=== PATIENT | female | born 1985 | race African-American/Black ===

== ENCOUNTER 2016-08-05 21:17 | Emergency (ER) | payer OTHER ==
[~2016-08-05] VITALS: Ht 165.1 cm; Wt 73.9 kg
--- NOTE | 2016-08-05 21:48 | ED GI/GU/ABDOMINAL COMPLAINT ---
History of Present Illness General Chief Complaint: Uterine Contractions(Pregnacy) Stated Complaint: VAGINAL BLEEDING, ABD CRAMPING, +20 WKS PREG. Source: patient Exam Limitations: no limitations Vital Signs & Intake/Output Vital Signs & Intake/Output Vital Signs Date Time Temp Pulse Resp B/P B/P Pulse O2 O2 Flow FiO2 Mean Ox Delivery Rate 08/06 0010 110/70 08/05 2356 97.2 71 18 91/50 99 Room Air 08/05 2120 98.4 102 20 111/72 100 Room Air ED Intake and Output 08/06 0000 08/05 1200 Intake Total 0 Output Total Balance 0 Intake, Oral 0 Patient 163 lb Weight Weight Reported by Patient Measurement Method Allergies Coded Allergies: almond oil (Intermediate, HIVES 08/05/16) apricot (Intermediate, HIVES 08/05/16) peanut (Intermediate, HIVES 08/05/16) pollen extracts (Intermediate, SNEEZING, WHEEZING, TRIGGERS ASTHMA 08/05/16) Triage Note: TRIAGE: PT TO ER C/C ABD PAIN AND VAGINAL BLEEDING. ONSET THIS MORNING. PT CURRENTLY 20 WEEKS , DUE DATE 12/19/2016. PT OF DR SYED. . STATES WITH LAST HAD COMPLICATION OF PLACENTA PREVIA BUT DENIES ANY COMPLICATIONS WITH THIS . REPORTS PAIN WAS INTERMITTENT AND WAS UPPER ABD INITIALLY CONTRACTION LIKE IN NATURE AND NOW PAIN IS LOW ABD CRAMPING AND CONSTANT. STATES VAGINAL BLEEDING WAS SPOTTING THIS MORNING BUT AT 8 PM HAD INCREASED BLEEDING WITH BRB, DENIES CLOTS BUT STATES THERE WERE "LITTLE SPECKS". STATES HAS NOT NEEDED TO WEAR A PAD JUST HAD TO WIPE MORE. [facility]PO[facility] WHO ADVISED PATIENT IS TO REMAIN IN ER AND THEY ARE AVAILABLE IF NEEDED. Triage Nurses Notes Reviewed? yes ? Y Is pt currently ? No Duration: hour(s): Timing: recent history Location: suprapubic Radiation: no radiation Activities at Onset: none Sexually Active: Yes Associated Symptoms: VAGINAL BLEEDING, MILD CRAMPS HPI: 31 yo woman a2, 20 weeks gestation, presents with vaginal bleeding. "It started as just a few flecks of blood this afternoon.... but then it started bleeding again... a little heavier... not quite as heavy as a period...." She notes no abdominal discomfort or cramping. She notes no fever, chills, dysuria. Past History Travel History Traveled to [place] past 21 day No Medical History Any Pertinent Medical History? see below for history Neurological: NONE EENT: NONE Cardiovascular: NONE Respiratory: asthma Gastrointestinal: NONE Hepatic: NONE Renal: NONE Musculoskeletal: NONE Psychiatric: NONE Endocrine: NONE Blood Disorders: NONE Cancer(s): NONE MEDICAL I D SALES/Reproductive: PLACENTA PREVIA Surgical History Surgical History: N Psychosocial History What is your primary language Samoan Tobacco Use: Never used ETOH Use: occasional use Illicit Drug Use: denies illicit drug use Family History Hx Contributory? No Review of Systems Review of Systems Constitutional: Reports: no symptoms. EENTM: Reports: no symptoms. Respiratory: Reports: no symptoms. Cardiovascular: Reports: no symptoms. GI: Reports: no symptoms. Genitourinary: Reports: no symptoms. Musculoskeletal: Reports: no symptoms. Skin: Reports: no symptoms. Neurological/Psychological: Reports: no symptoms. Hematologic/Endocrine: Reports: no symptoms. Immunologic/Allergic: Reports: no symptoms. All Other Systems: Reviewed and Negative Physical Exam Physical Exam General Appearance: well developed/nourished Head: atraumatic, normal appearance Eyes: Bilateral: normal appearance. Ears, Nose, Throat, Mouth: hearing grossly normal Neck: normal inspection Respiratory: normal breath sounds Cardiovascular: regular rate/rhythm Gastrointestinal: normal bowel sounds, soft, non-tender Pelvic: cervix closed, no active bleeding. Back: normal inspection Extremities: normal range of motion Neurologic/Psych: no motor/sensory deficits, awake, alert, oriented x 3 Core Measures ACS in differential dx? No Severe Sepsis Present: No Septic Shock Present: No Progress Differential Diagnosis: THREATENED MISCARRIAGE, VS OTHER Plan of Care: Orders Procedure Date/time Status HUMAN BETA HCG TITRE 08/05 2148 Complete COMPREHENSIVE METABOLIC PANEL 08/05 2148 Complete CBC WITHOUT DIFFERENTIAL 08/05 2148 Complete Laboratory Tests 08/05/16 2243: Anion Gap 9, Estimated GFR > 60, BUN/Creatinine Ratio 11.7, Glucose 78, Calcium 8.9, Total Bilirubin 0.3, AST 16, ALT 32, Alkaline Phosphatase 41, Total Protein 6.4, Albumin 3.5, Globulin 2.9, Albumin/Globulin Ratio 1.2, Beta HCG, Quant 60603.0, CBC w Diff NO MAN DIFF REQ, RBC 4.03 L, MCV 93.3, MCH 31.6 H, RDW 13.9, MPV 9.3, Gran % 67.3, Lymphocytes % 19.0 L, Monocytes % 7.0, Eosinophils % 6.2 H, Basophils % 0.5, Absolute Granulocytes 7.8 H, Absolute Lymphocytes 2.2, Absolute Monocytes 0.8 H, Absolute Eosinophils 0.7, Absolute Basophils 0.1 , PUBS MCHC 33.8 Initial ED EKG: none Comments: bedside u/s.... heart movement 150's. ample movement. Departure Departure Disposition: HOME OR SELF CARE Condition: Stable Clinical Impression Primary Impression: Threatened miscarriage Referrals: UNKNOWN (PCP/Family) Departure Forms: Customer Survey General Discharge Information Comments blood type a+.... no need for rhogam pt feels well in ED. labs stable. pt safe for discharge.
[2016-08-05 23:03] LABS: ABSOLUTE BASOPHIL COUNT 0.1 /CUMM (0.0-0.2); ABSOLUTE EOSINOPHIL COUNT 0.7 /CUMM (0.0-0.7); ABSOLUTE GRANULOCYTE CT 7.8 /CUMM (1.4-6.5); ABSOLUTE LYMPH COUNT 2.2 /CUMM (1.2-3.4); ABSOLUTE MONOCYTE COUNT 0.8 /CUMM (0.10-0.60); BASOPHIL % 0.5 % (0.0-2.0); EOSINOPHIL % 6.2 % (0-5); GRANULOCYTE % 67.3 % (42.2-75.2); HEMATOCRIT 37.5 % (37-47); MEAN CORPUSCULAR HGB 31.6 PG (27.0-31.0); MEAN CORPUSCULAR HGB CONC 33.8 G/DL (33.0-37.0); MEAN CORPUSCULAR VOLUME 93.3 FL (81.0-99.0); MEAN PLATELET VOLUME 9.3 FL (7.4-10.4); PLATELET COUNT 172 /CUMM (130-400); RBC DISTRIBUTION WIDTH 13.9 % (11.5-14.5); RED BLOOD CELL CT 4.03 /CUMM (4.20-5.40); WHITE BLOOD CELL COUNT 11.5 /CUMM (4.8-10.8)
[2016-08-06 00:10] VITALS: BP 110/70
== END 2016-08-06 00:44 ==
LOC: ERH 21:17
PROVIDERS: Pediatrics
DX: O20.0 Threatened abortion (principal)